=== PATIENT | male | born 1990 | race African-American/Black ===

== ENCOUNTER 2021-10-02 13:28 | Emergency (ER) | payer MEDICAID ==
[~2021-10-02] VITALS: Ht 170.2 cm; Wt 63.5 kg
[2021-10-02] MEDS ORDERED: BIKTARVY (13:47)
[2021-10-02] MEDS ORDERED: ACET-2154 PO (13:47)
[2021-10-02 15:55] LABS: MEAN CORPUSCULAR HEMOGLOBIN 28.2 uug (23.8-33.4); PLATELET COUNT (AUTO) 197 K/uL (152-348)
[2021-10-02 15:59] LABS: CREATININE 1.3 mg/dL (0.6-1.3); POTASSIUM 3.9 mmol/L (3.5-5.1)
[2021-10-02 16:05] LABS: BILIRUBIN,DIRECT 0.1 mg/dL (0.0-0.2); BILIRUBIN,TOTAL 0.2 mg/dL (0.2-1.0); TOTAL PROTEIN, SERUM 9.1 g/dL (6.4-8.2)
[2021-10-02] MEDS ORDERED: SWABABLE VALVE TRANSFER SET EA MC ONE (17:23)
[2021-10-02] MEDS ORDERED: IV NORMAL SALINE 250 ML IV ONE (17:23)
[2021-10-02] MEDS ORDERED: IOHEXOL 350 100 ML INFUS..BTL ONE (17:23)
[2021-10-02] MEDS ORDERED: D-ME473S63 PO (20:36)
--- NOTE | 2021-10-02 20:43 | NUR ---
IV removed. Catheter intact and site benign. Pressure and 4x4 gauze applied to site. No bleeding noted.
--- NOTE | 2021-10-02 20:45 | NUR ---
Patient discharged to home in stable condition. Written and verbal after care instructions given. Patient verbalizes understanding of instructions. Stressed follow up or return to ER for worsening s/s.
[2021-10-02 21:12] VITALS: BP 137/78
== END 2021-10-02 21:13 | disposition home or self-care (01) ==
LOC: ER 13:28
DX: B34.9 Viral infection, unspecified (principal); R07.9 Chest pain, unspecified; R94.31 Abnormal electrocardiogram [ECG] [EKG]; Z20.822 Contact with and (suspected) exposure to COVID-19; Z59.01 Sheltered homelessness; R79.1 Abnormal coagulation profile
CPT/HCPCS: 36415; 71045; 71275; 80048; 80076; 83605; 84145; 84484 ×2; 85025; 85379; 85730; 87040 ×2; 87426; 93005 ×2; 99285; Q9967; 70030-TC; A4663; J7050